=== PATIENT | female | born 1970 | race Caucasian/White ===

== ENCOUNTER 2022-08-16 08:20 | Outpatient (RCR) | payer BC | END 2022-09-12 | disposition home or self-care (01) | LOC: MKS.ESL.PT | DX: M75.02 Adhesive capsulitis of left shoulder (principal); M75.92 Shoulder lesion, unspecified, left shoulder ==

== ENCOUNTER 2022-08-17 08:09 | Outpatient (RCR) | payer OTHER | END 2022-09-12 | disposition home or self-care (01) | LOC: WSOH | DX: S46.012A Strain of muscle(s) and tendon(s) of the rotator cuff of left shoulder, initial encounter (principal); E11.9 Type 2 diabetes mellitus without complications; Y99.0 Civilian activity done for income or pay ==

== ENCOUNTER 2022-12-07 10:45 | Outpatient (RCR) | payer BC | END 2022-12-10 | disposition home or self-care (01) | LOC: MKS.ESL.PT | DX: M75.02 Adhesive capsulitis of left shoulder (principal) ==